=== PATIENT | female | born 2000 | race Two or more races ===

== ENCOUNTER 2023-06-06 14:35 | Inpatient (IN) | payer OTHER ==
[2023-06-06 16:14] LABS: BASO % 0.6 % (0-2.0); EOS % 1.2 % (0-4.5); HEMATOCRIT 31.3 % (32.4-45.2); HEMOGLOBIN 10.3 GM/dL (10.7-15.3); LYMPH % 23.7 % (8-40); MCH 28.8 pg (25.7-33.7); MEAN CELL VOLUME 87.4 fl (80-96); MEAN PLT VOLUME 9.6 fl (7.5-11.1); MONO % 6.8 % (3.8-10.2); NEUT % 67.7 % (42.8-82.8); PLATELET COUNT 225 10^3/uL (134-434); RBC 3.58 M/mm3 (3.60-5.2); RDW 15.1 % (11.6-15.6); WHITE BLOOD COUNT 7.7 K/mm3 (4.0-10.0)
[2023-06-06 16:52] LABS: INR 0.9 (0.83-1.09); PROTHROMBIN TIME (PATIENT) 10.5 SEC (9.7-13.0)
[2023-06-06 16:54] LABS: ACTIVATED PTT 27.3 SECONDS (25.2-36.5)
[2023-06-06] MEDS ORDERED: ELECTROLYTE-148 SOLN 500 ML IV SCH (17:30)
[2023-06-06 17:33] LABS: CALCIUM 8.4 mg/dL (8.5-10.1); POTASSIUM 4.1 mmol/L (3.5-5.1)
[2023-06-06 17:34] LABS: BLOOD UREA NITROGEN 8.4 mg/dL (7-18)
[2023-06-06 17:37] LABS: CREATININE 0.5 mg/dL (0.55-1.3)
[2023-06-06 17:49] VITALS: BMI 27.9
[2023-06-06] MEDS: ELECTROLYTE-148 SOLN 500 ML IV SCH ×2 (18:30→22:00)
[2023-06-07] MEDS ORDERED: OXYTOCIN 30 UNITS in 0.9% NS 30 UNIT/500 ML INFUS.BAG IVPB ONE (03:12)
[2023-06-07] MEDS ORDERED: OXYTOCIN 30 UNITS in 0.9% NS 30 UNIT/500 ML INFUS.BAG IVPB SCH (03:15)
[2023-06-07] MEDS ORDERED: PROMETHAZINE HCL 25 MG/1 ML VIAL IVPB ONE (04:10)
[2023-06-07] MEDS ORDERED: BUTORPHANOL TARTRATE 2 MG/ML VIAL IVPB ONE (04:10)
[2023-06-07] MEDS ORDERED: BUTORPHANOL TARTRATE 1 MG/ML VIAL ONE (04:15)
[2023-06-07] MEDS ORDERED: PROMETHAZINE HCL 25 MG/1 ML VIAL ONE (04:15)
[2023-06-07] MEDS ORDERED: ELECTROLYTE-148 SOLN 1,000 ML IV SCH (06:00)
[2023-06-07] MEDS ORDERED: FENTANYL/BUPIVACAINE/NS/PF - PCEA - 50 ML DISP.SYRIN EP ONE ×2 (09:00→13:39)
[2023-06-07] MEDS: FENTANYL/BUPIVACAINE/NS/PF - PCEA - 50 ML DISP.SYRIN EP SCH ×3 (10:05→14:15)
[2023-06-07] MEDS ORDERED: NALOXONE HCL 0.4 MG/ML VIAL IVPUSH PRN (10:25)
[2023-06-07] MEDS ORDERED: BUPIVACAINE HCL/PF 0.25% (2.5MG/ML) 10 ML VIAL ONE (15:53)
[2023-06-07] MEDS ORDERED: FENTANYL CITRATE/PF 50 MCG/ML VIAL ONE (15:54)
[2023-06-07] MEDS ORDERED: OXYTOCIN 20 UNITS in 0.9% NS 20 UNIT/1,000 ML INFUS.BAG IV ONE (16:07)
[2023-06-07] MEDS ORDERED: BISACODYL 10 MG SUPP.RECT RC PRN (16:44)
[2023-06-07] MEDS ORDERED: METHYLERGONOVINE MALEATE 0.2 MG/1 ML AMP IM PRN (16:44)
[2023-06-07] MEDS ORDERED: IBUPROFEN 600 MG TABLET (FP) PO PRN (16:44)
[2023-06-07] MEDS ORDERED: BENZOCAINE 28 GM HEMORRHOIDAL OINTMENT TP PRN (16:44)
[2023-06-07] MEDS ORDERED: BENZOCAINE 20% 57 GM BOTTLE TP PRN (16:44)
[2023-06-07] MEDS ORDERED: WITCH HAZEL 50% (TUCKS) 40 PAD/JAR PAD TP PRN (16:44)
[2023-06-07] MEDS ORDERED: ACETAMINOPHEN 325 MG TABLET (FP) PO PRN (16:44)
[2023-06-07] MEDS ORDERED: OXYTOCIN 20 UNITS in 0.9% NS 20 UNIT/1,000 ML INFUS.BAG IV SCH (16:45)
[2023-06-07] MEDS ORDERED: IBUPROFEN 600 MG TABLET (FP) PO ONE (19:08)
[2023-06-07] MEDS: FERROUS SO4 325 MG TABLET (FP) PO SCH (21:39)
[2023-06-08 06:59] LABS: BASO % 0.4 % (0-2.0); EOS % 0.1 % (0-4.5); HEMATOCRIT 23.8 % (32.4-45.2); LYMPH % 15.2 % (8-40); MCH 29.2 pg (25.7-33.7); MCHC 33.4 g/dl (32.0-36.0); MEAN CELL VOLUME 87.4 fl (80-96); MEAN PLT VOLUME 9.1 fl (7.5-11.1); NEUT % 77.3 % (42.8-82.8); PLATELET COUNT 209 10^3/uL (134-434); RBC 2.73 M/mm3 (3.60-5.2); RDW 15.3 % (11.6-15.6); WHITE BLOOD COUNT 13.9 K/mm3 (4.0-10.0)
[2023-06-08] MEDS: PRENATAL VITAMINS W/ FOLIC ACID TABLET (FP) PO SCH (09:45)
[2023-06-08] MEDS: FERROUS SO4 325 MG TABLET (FP) PO SCH ×2 (09:46→22:17)
[2023-06-08 09:53] VITALS: RESP 18
[2023-06-08] MEDS ORDERED: SENNOSIDES/DOCUSATE COMBO (SENNA PLUS) TABLET (UD) PO PRN (22:00)
[2023-06-08 22:02] VITALS: BP 112/59; PULSE 106; TEMP 99.7
[2023-06-09] MEDS: PRENATAL VITAMINS W/ FOLIC ACID TABLET (FP) PO SCH (09:35)
[2023-06-09] MEDS: FERROUS SO4 325 MG TABLET (FP) PO SCH (09:35)
== END 2023-06-09 13:30 | disposition home or self-care (01) | DRG 560 ==
LOC: JLDR 14:35 → J3W 06-07 20:47
PROVIDERS: ADMIT Obstetrics & Gynecology; ATTEND Obstetrics & Gynecology
PROC: 10E0XZZ Delivery of Products of Conception, External Approach (ICD-10-PCS; principal; 2023-06-07)
PROC: 0W8NXZZ Division of Female Perineum, External Approach (ICD-10-PCS; 2023-06-07)
PROC: 0HQ9XZZ Repair Perineum Skin, External Approach (ICD-10-PCS; 2023-06-07)
DX: O41.03X0 Oligohydramnios, third trimester, not applicable or unspecified (principal); O36.5930 Maternal care for other known or suspected poor fetal growth, third trimester, not applicable or unspecified; O70.0 First degree perineal laceration during delivery; O77.0 Labor and delivery complicated by meconium in amniotic fluid; Z3A.40 40 weeks gestation of pregnancy; Z37.0 Single live birth
CPT/HCPCS: 36415; 80048; 85025; 85610; 85730; 86780; 86850; 86900; 86901